=== PATIENT | male | born 1990 | race Caucasian/White ===

== ENCOUNTER 2018-03-14 13:28 | Emergency (ER) | payer OTHER ==
[~2018-03-14] VITALS: Ht 170.2 cm; Wt 77.1 kg
[2018-03-14] MEDS ORDERED: NORCO 5-325 TA1 EACH PO (14:32)
[2018-03-14 15:29] VITALS: BP 122/91
== END 2018-03-14 15:31 | disposition home or self-care (01) ==
LOC: M.ERS 13:28
DX: S92.354A Nondisplaced fracture of fifth metatarsal bone, right foot, initial encounter for closed fracture (principal); W10.8XXA Fall (on) (from) other stairs and steps, initial encounter; Y93.89 Activity, other specified; Y92.89 Other specified places as the place of occurrence of the external cause; Y99.8 Other external cause status

== ENCOUNTER 2020-05-02 00:45 | Emergency (ER) | payer OTHER ==
[~2020-05-02] VITALS: Ht 170.2 cm; Wt 68.0 kg
[~2020-05-02 00:45] MED LIST: NORCO 5-325 TA1 EACH PO
[2020-05-02 01:19] LABS: ABSOLUTE BASOPHILS 0.1 thou/uL (0.0-0.2); ABSOLUTE EOSINOPHILS 0.8 thou/uL (0.0-0.7); ABSOLUTE NEUTROPHILS 5.9 thou/uL (1.6-8.1); EOSINOPHILS 7.3 %; HEMATOCRIT 44.5 % (42.0-52.0); HEMOGLOBIN 15.6 gm/dL (14.0-18.0); LYMPHOCYTES 27.8 %; MCH 31.3 pg (26.0-34.0); MCV 89.5 fL (80.0-100.0); MONOCYTES 9.5 %; NUCLEATED RBCS 0 /100WBC; PLATELET COUNT* 352 thou/uL (150-400); POLYS 54.4 %; RBC 4.97 mil/uL (4.50-6.00); RDW-CV 13.3 % (10.5-14.5); WBC 10.9 thou/uL (4.0-11.0)
[2020-05-02] MEDS ORDERED: NAPROSYN500 MG PO (02:20)
[2020-05-02] MEDS ORDERED: CYCLOBENZAPRINE5 MG PO (02:20)
[2020-05-02 02:25] VITALS: BP 104/65
--- NOTE | 2020-05-02 09:59 | EKG ---
[place] [address] ELECTROCARDIOGRAM REPORT Name: GET NEELY Room: [facility]#: [id number] Admission: 05/02/20 Attend Phys: Discharge: 05/02/20 Date of : 86 Date of Service: 05/02/20 0050 Report #: [id number] THIS REPORT FOR: //name// [facility] ED Test Date: 2020-05-02 Test Time: 00:50:18 Pat Name: GET NEELY Department: Room: Gender: Purchasing Department Clerk: : 1990 Requested By: Mildred Fatima Order Number: [id number] MD: Rc Gottlieb Measurements Intervals [place] Rate: 62 P: -1 GA: 145 QRS: 73 QRSD: 85 T: 42 QT: 383 QTc: 389 Interpretive Statements Sinus rhythm High ST segment takeoff in multiple leads most compatible with a normal variant Baseline wander in lead(s) II,III,aVR,aVL,aVF No previous ECG available for comparison Electronically Signed On 05-02-2020 9:59:14 CDT by Rc Gottlieb [email or web address] <ELECTRONICALLY SIGNED> By: Rc Gottlieb MD, [facility] 05/02/20 0959 0050 0050 Rc Gottlieb MD, [facility] /EPI
== END 2020-05-02 02:26 | disposition home or self-care (01) ==
LOC: M.ERS 00:45
PROVIDERS: Personal Emergency Response Attendant
DX: S20.212A Contusion of left front wall of thorax, initial encounter (principal); G51.0 Bell's palsy; F17.210 Nicotine dependence, cigarettes, uncomplicated; W18.39XA Other fall on same level, initial encounter; Y93.89 Activity, other specified; Y92.89 Other specified places as the place of occurrence of the external cause; Y99.8 Other external cause status

== ENCOUNTER 2020-05-15 08:16 | Emergency (ER) | payer OTHER ==
[~2020-05-15] VITALS: Ht 170.2 cm; Wt 68.0 kg
[~2020-05-15 08:16] MED LIST changes: +CYCLOBENZAPRINE5 MG PO; +NAPROSYN500 MG PO
[2020-05-15 08:25] VITALS: BP 133/87
== END 2020-05-15 09:13 | disposition home or self-care (01) ==
LOC: M.ERS 08:16
DX: T16.2XXA Foreign body in left ear, initial encounter (principal); X58.XXXA Exposure to other specified factors, initial encounter; Y93.89 Activity, other specified; Y92.89 Other specified places as the place of occurrence of the external cause; Y99.8 Other external cause status

== ENCOUNTER 2020-08-08 11:22 | Emergency (ER) | payer OTHER ==
[~2020-08-08] VITALS: Ht 167.6 cm; Wt 68.0 kg
[2020-08-08] MEDS ORDERED: PREDNISONE 20 M20 MG PO (12:02)
[2020-08-08] MEDS ORDERED: VENTOLIN HFA 1818 GM INH (12:02)
[2020-08-08] MEDS ORDERED: ZPAK PO (12:02)
[2020-08-08 12:09] VITALS: BP 132/68
== END 2020-08-08 12:10 | disposition home or self-care (01) ==
LOC: M.ERS 11:22
DX: U07.1 COVID-19 (principal)

== ENCOUNTER 2021-04-09 19:46 | Emergency (ER) | payer OTHER ==
[~2021-04-09] VITALS: Ht 167.6 cm; Wt 68.0 kg
[~2021-04-09 19:46] MED LIST changes: +PREDNISONE 20 M20 MG PO; +VENTOLIN HFA 1818 GM INH; +ZPAK PO
[2021-04-09 23:35] VITALS: BP 108/67
[2021-04-09] MEDS ORDERED: IBUPROFEN 800800 MG PO (23:38)
[2021-04-09] MEDS ORDERED: HYDROCODON-ACE1 EAC7 PO (23:38)
== END 2021-04-09 23:35 | disposition home or self-care (01) ==
LOC: M.ERS 19:46
DX: S62.394A Other fracture of fourth metacarpal bone, right hand, initial encounter for closed fracture (principal); S62.396A Other fracture of fifth metacarpal bone, right hand, initial encounter for closed fracture; W22.8XXA Striking against or struck by other objects, initial encounter; Y93.89 Activity, other specified; Y92.89 Other specified places as the place of occurrence of the external cause; Y99.8 Other external cause status